=== PATIENT | female | born 1980 | race Hispanic/Latino ===

== ENCOUNTER 2020-02-10 10:27 | Emergency (ER) | payer BC ==
[~2020-02-10] VITALS: Ht 170.2 cm; Wt 138.3 kg
[2020-02-10 12:05] VITALS: BP 126/77
== END 2020-02-10 12:05 | disposition home or self-care (01) ==
LOC: FSED 10:40
DX: R06.81 Apnea, not elsewhere classified (principal); Z86.19 Personal history of other infectious and parasitic diseases; I10 Essential (primary) hypertension; E11.9 Type 2 diabetes mellitus without complications; Z88.8 Allergy status to other drugs, medicaments and biological substances
CPT/HCPCS: 71046; 99283

== ENCOUNTER 2020-10-08 02:04 | Emergency (ER) | payer BC ==
[~2020-10-08] VITALS: Ht 170.2 cm; Wt 136.1 kg
[2020-10-08] MEDS ORDERED: FAMOTIDINE 20 MG/2 ML VIAL IV ONE (03:24)
[2020-10-08] MEDS ORDERED: FAMOTIDINE20 MG PO (04:01)
[2020-10-08 04:05] VITALS: BP 137/78
== END 2020-10-08 04:05 | disposition home or self-care (01) ==
LOC: FSED 02:33
DX: R07.9 Chest pain, unspecified (principal); R10.13 Epigastric pain; I10 Essential (primary) hypertension; E11.9 Type 2 diabetes mellitus without complications; M06.9 Rheumatoid arthritis, unspecified; K29.70 Gastritis, unspecified, without bleeding; E66.9 Obesity, unspecified; R94.31 Abnormal electrocardiogram [ECG] [EKG]
CPT/HCPCS: 80048; 80076; 81003; 81025; 82553; 84484; 85025; 93005; 99284